=== PATIENT | male | born 1995 ===

== ENCOUNTER 2021-08-28 23:48 | Inpatient (IN) | payer OTHER ==
[~2021-08-28] VITALS: Ht 175.3 cm; Wt 78.7 kg
[2021-08-29] MEDS ORDERED: B-1100 M1 PO (01:46)
[2021-08-29] MEDS ORDERED: GABA300 PO (01:46)
[2021-08-29] MEDS ORDERED: FOLIC ACID0.4 MG (01:47)
[2021-08-29] MEDS ORDERED: MELATONIN5 M1 PO (01:47)
[2021-08-29] MEDS ORDERED: CHLO25 PO (01:48)
[2021-08-29] MEDS ORDERED: HYDPAM50 PO (01:49)
[2021-08-29] MEDS ORDERED: CATAPRES0.1 MG PO (01:52)
[2021-08-29] MEDS ORDERED: METO25 PO (01:53)
[2021-08-29] MEDS ORDERED: PROM25 PO (01:53)
[2021-08-29] MEDS ORDERED: TRAZ50 PO (01:54)
[2021-08-29 02:41] LABS: Alanine Aminotransfer (ALT/SGP 166 U/L (12-78); Albumin, Blood 3.8 g/dL (3.4-5.0); Albumin/Globulin Ratio 1.3 (0.8-1.8); Alk Phos 206 U/L (50-136); Anion Gap 7 mmol/L (6-16); Aspartate Aminotrans (AST/SGOT 125 U/L (12-37); Bilirubin, Total 2.5 mg/dL (0.1-1.0); Blood Urea Nitrogen 9 mg/dL (8-24); Bun/Creatinine Ratio 12.2 (12.0-20.0); CO2, Blood 29 mmol/L (21-32); Chloride, Blood 102 mmol/L (98-108); Creatinine, Blood 0.74 mg/dL (0.60-1.20); Glomerular Filtration Rate >60 (60-); Glucose, Blood 116 mg/dL (70-99); Potassium, Blood 3.2 mmol/L (3.5-5.5); Sodium, Blood 138 mmol/L (136-145); Total Protein, Blood 6.8 g/dL (6.4-8.2)
[2021-08-29 02:53] LABS: BASOPHILS ABSOLUTE AUTO 0.03 K/mm3 (0.00-0.23); BASOPHILS PERCENT AUTO 0 % (0-2); EOSINOPHILS ABSOLUTE AUTO 0.03 K/mm3 (0.00-0.68); EOSINOPHILS PERCENT AUTO 0 % (0-6); Hematocrit 35.5 % (37.0-53.0); Hemoglobin 12.1 g/dL (13.5-17.5); IMMATURE GRAN ABSOLUTE AUTO 0.04 K/mm3 (0.00-0.10); IMMATURE GRAN PERCENT AUTO 1 % (0-1); LYMPHOCYTES ABSOLUTE AUTO 2.51 K/mm3 (0.84-5.20); LYMPHOCYTES PERCENT AUTO 37 % (21-46); MONOCYTES ABSOLUTE AUTO 0.48 K/mm3 (0.16-1.47); MONOCYTES PERCENT AUTO 7 % (4-13); Mean Corpuscular HGB 31.8 pg (26.0-34.0); Mean Corpuscular HGB Conc 34.1 g/dL (31.5-36.5); Mean Corpuscular Volume 93 fL (80-100); Mean Platelet Volume 11.6 fL (9.1-12.4); NEUTROPHILS ABSOLUTE AUTO 3.62 K/mm3 (1.96-9.15); NEUTROPHILS PERCENT AUTO 54 % (41-73); Platelet Count 71 K/mm3 (150-400); RDW Coefficient Variation 16.1 % (11.7-14.2); RDW Standard Deviation 55.5 fL (35.1-46.3); White Blood Cell Count 6.71 K/mm3 (4.00-11.30)
--- NOTE | 2021-08-29 05:30 | NUR ---
Arrived from ER, admission assessment complete. Unable to answer any questions due to being too drowsy. follows commands, when speaking- speech very garbled and difficult to understand
[2021-08-29 05:32] LABS: International Normalized Ratio 1.24; Prothrombin Time Results 12.8 Sec (9.7-11.5)
--- NOTE | 2021-08-29 07:50 | NUR ---
TOOK OVER CARE OF PT AT 0700, PT RESTING ON RA.
--- NOTE | 2021-08-29 11:59 | NUR ---
PT WAS GETTING OUT OF BED, SEEMINGLY NO RESPONSE FROM IV ATIVAN PUSHES, SECURITY AND DR. TAVARES TO BEDSIDE. ORDERS PLACED
--- NOTE | 2021-08-29 18:22 | NUR ---
SUMMARY NEURO; PT A/OX3 BUT THEN WILL LOSE TRACK OF CONVERSATION DUE TO VISUAL AND AUDITORY HALLUCINATIONS. FOLOOWS COMMANDS, EQUAL STRENGTH THROUGHOUT. CARDIAC; NSR/SB LUNGS: CLEAR ON RA SKIN; WNL- NO SWEATS GI: NPO/ HYPOACTIVE : WNL
[2021-08-30 04:05] LABS: BASOPHILS ABSOLUTE AUTO 0.03 K/mm3 (0.00-0.23); BASOPHILS PERCENT AUTO 0 % (0-2); EOSINOPHILS ABSOLUTE AUTO 0.08 K/mm3 (0.00-0.68); EOSINOPHILS PERCENT AUTO 1 % (0-6); Hematocrit 32.9 % (37.0-53.0); IMMATURE GRAN ABSOLUTE AUTO 0.04 K/mm3 (0.00-0.10); IMMATURE GRAN PERCENT AUTO 1 % (0-1); LYMPHOCYTES ABSOLUTE AUTO 1.86 K/mm3 (0.84-5.20); LYMPHOCYTES PERCENT AUTO 26 % (21-46); MONOCYTES ABSOLUTE AUTO 0.44 K/mm3 (0.16-1.47); MONOCYTES PERCENT AUTO 6 % (4-13); Mean Corpuscular HGB 32.5 pg (26.0-34.0); Mean Corpuscular HGB Conc 33.4 g/dL (31.5-36.5); Mean Corpuscular Volume 97 fL (80-100); Mean Platelet Volume 10.4 fL (9.1-12.4); NEUTROPHILS ABSOLUTE AUTO 4.74 K/mm3 (1.96-9.15); NEUTROPHILS PERCENT AUTO 66 % (41-73); Platelet Count 73 K/mm3 (150-400); RDW Coefficient Variation 16.3 % (11.7-14.2); RDW Standard Deviation 58.2 fL (35.1-46.3); Red Blood Cell Count 3.38 M/mm3 (4.30-5.90); White Blood Cell Count 7.19 K/mm3 (4.00-11.30)
[2021-08-30 04:25] LABS: Alanine Aminotransfer (ALT/SGP 107 U/L (12-78); Albumin, Blood 2.9 g/dL (3.4-5.0); Albumin/Globulin Ratio 1.1 (0.8-1.8); Alk Phos 136 U/L (50-136); Anion Gap 5 mmol/L (6-16); Aspartate Aminotrans (AST/SGOT 70 U/L (12-37); Blood Urea Nitrogen 6 mg/dL (8-24); Bun/Creatinine Ratio 9.1 (12.0-20.0); CO2, Blood 27 mmol/L (21-32); Calcium, Blood 8.3 mg/dL (8.5-10.1); Chloride, Blood 109 mmol/L (98-108); Creatinine, Blood 0.66 mg/dL (0.60-1.20); Globulin, Blood 2.7 g/dL (2.2-4.0); Glomerular Filtration Rate >60 (60-); Glucose, Blood 103 mg/dL (70-99); Potassium, Blood 3.1 mmol/L (3.5-5.5); Sodium, Blood 141 mmol/L (136-145); Total Protein, Blood 5.6 g/dL (6.4-8.2)
[2021-08-30 04:49] LABS: U Amphetamine Screen Not Detected; U Barbituate Screen DETECTED; U Benzodiazapine Screen DETECTED; U Buprenorphine Screen Not Detected; U Cannabinoids Screen Not Detected; U Cocaine Screen Not Detected; U Methadone Screen Not Detected; U Methamphetamine Screen Not Detected; U Opiates Screen DETECTED; U Oxycodone Screen Not Detected; U Phencyclidine Screen Not Detected; U Propoxyphene Screen Not Detected
--- NOTE | 2021-08-30 06:45 | NUR ---
increased hallucinations this am. Medicated as needed. Patient request nurse to call mother and update her. Called at this time. Updates given to mom and then transferred call to room to talk to patient.
--- NOTE | 2021-08-30 09:00 | NUR ---
INITIAL ASSESSMENT PATIENT ANSWERED ALL ORIENTATION QUESTIONS CORRECTLY THIS AM, HOWEVER PATIENT HAS INTERMITTENT CONFUSION AND WITH IT WILL PULL OFF/ AT LINES AND CORDS AND ATTEMPT TO GET OUT OF BED. WHEN PATIENT ASKED WEAR HE THINKS HE IS HE IS UNSURE BUT THEN IS EASILY REORIENTED AND REDIRECTED. PATIENT CALM AND COOPERATIVE. PATIENT HAS CIWA SCORE OF 2. PATIENT UNSTEADY AND OFF BALANCE ON FEET. PATIENT AFEBRILE. PATIENT SATTING 90% AND GREATER ON RA. PATIENT IN SR, HR 60S TO 80S. SBP LOW 100S TO 1-TEENS. ABDOMINAL SOUNDS HYPOACTIVE. DENIES NAUSEA. ON REGULAR DIET. PATIENT USES URINAL INDEPENDENTLY. IV FLUSHED AND SALINE LOCKED. YASMIN AND BED ALARM ON FOR SAFETY. SKIN APPEARS WNL. BED LOW, CALL LIGHT IN REACH. WILL CONTINUE TO MONITOR FREQUENTLY THROUGHOUT SHIFT.
--- NOTE | 2021-08-30 13:30 | NUR ---
PATIENT HAS NO COMPLAINTS. VSS. CIWA SCORE OF 1. NO OTHER ACUTE CHANGES TO NOTE ON AT THIS TIME.
[2021-08-30] MEDS ORDERED: LORA2 PO (15:50)
[2021-08-30] MEDS ORDERED: Norco 5-325 Ta1 EACH PO (15:51)
--- NOTE | 2021-08-30 16:52 | NUR ---
PATIENT AFEBRILE. NO COMPLAINTS OF PAIN. PATIENT ANSWERING ALL ORIENTATION QUESTIONS CORRECTLY. PATIENT HAS HAD LESS EPISODES OF CONFUSION BUT IS STILL FORGETFUL AT TIMES. PATIENT HAS BEEN LESS IMPULSIVE AND HAS NOT BEEN PULLING AT LINES AND CORDS. PATIENT DOES STATE THAT HE FEELS MORE ANXIOUS. CIWA SCORE OF 4. PATIENT GIVEN PRN LIBRIUM. HR 80S TO 90S. SBP 120S TO 130S. NO OTHER ACUTE CHANGES TO NOTE ON AT THIS TIME.
--- NOTE | 2021-08-30 18:31 | NUR ---
SHIFT SUMMARY PATIENT REMAINED ABLE TO ANSWER ALL ORIENTATION QUESTIONS CORRECTLY. PATIENT IMPULSIVE WITH INTERMITTENT PERIODS OF CONFUSION AND PULLING AT LINES AND CORDS THIS AM. PATIENT HAS BEEN LESS IMPULSIVE AND HAD ONLY BRIEF PERIODS OF FORGETFULNESS LATER THIS AFTERNOON. PATIENT DID SAY THIS AFTERNOON THAT HE WAS FEELING MORE ANXIOUS. CIWA SCORE RANGED FROM 1 TO 4. PATIENT 1 PA TO TOILET STILL IS A LITTLE UNSTEADY. PATIENT REMAINED SATTING 90% AND GREATER ON RA. PATIENT REMAINED IN SR, HR 60S TO 90S. SBP LOW 100S TO 130S. NO COMPLAINTS OF NAUSEA THIS SHIFT. PATIENT TOLERATED REGULAR DIET ALL DAY. PATIENT HAD 2 BMS THIS SHIFT. OUTPUT WNL. IV SALINE LOCKED. PATIENT RECEIVED 40 MEQ KCL REPLACEMENT FOR POTASSIUM OF 3.1 THIS AM. PATIENT REFUSED BEDBATH THIS SHIFT. PATIENT APPEARS COMFORTABLE AND CONTENT AT THIS TIME. BED LOW, CALL LIGHT IN REACH, BED ALARM ON. REPORT WILL BE GIVEN TO ONCOMING [employer]IST NURSE SHORTLY.
--- NOTE | 2021-08-30 19:30 | NUR ---
PT REPORT RECEIVED SAFETY CHECK COMPLETED, ASSUMED PT CARE. PT IS LYING SUPINE IN BED AND IS RESTING, WITH CALL LIGHT IN REACH AND BED ALARM ON.
[2021-08-31 04:13] LABS: Alanine Aminotransfer (ALT/SGP 87 U/L (12-78); Albumin, Blood 2.8 g/dL (3.4-5.0); Albumin/Globulin Ratio 1.1 (0.8-1.8); Alk Phos 132 U/L (50-136); Anion Gap 6 mmol/L (6-16); Aspartate Aminotrans (AST/SGOT 55 U/L (12-37); Bilirubin, Total 1.5 mg/dL (0.1-1.0); Blood Urea Nitrogen 5 mg/dL (8-24); Bun/Creatinine Ratio 6.8 (12.0-20.0); CO2, Blood 26 mmol/L (21-32); Calcium, Blood 8.3 mg/dL (8.5-10.1); Chloride, Blood 109 mmol/L (98-108); Creatinine, Blood 0.73 mg/dL (0.60-1.20); Globulin, Blood 2.6 g/dL (2.2-4.0); Glomerular Filtration Rate >60 (60-); Glucose, Blood 103 mg/dL (70-99); Potassium, Blood 3.3 mmol/L (3.5-5.5); Sodium, Blood 141 mmol/L (136-145); Total Protein, Blood 5.4 g/dL (6.4-8.2)
--- NOTE | 2021-08-31 06:34 | NUR ---
SHIFT SUMMERY: PT HAS BEEN ALERT AND ORIENTED X4 THROUGHOUT THE NIGHT AND HAS SLEPT INTERMITTANTLY. PT HAS HAS STATED ANXIETY AT TIMES THROUGHOUT THE NIGHT WHICH WAS RELEIVED WITH 2 MG OF IV ATIVAN. PT HAS ALSO STATED CHRONIC BACK PAIN, FOR WHICH HE HAS RECIEVED NORCO. PT IS ABLE TO AMBULATE WITH ASSISTANCE WITH THE EKG LINES AND HAS STEADY GAIT. PT STATES HE WANTS TO BE DISCHARGED. VSS OVER NIGHT.
[2021-08-31] MEDS ORDERED: BUSP5 PO (10:03)
--- NOTE | 2021-08-31 16:41 | NUR ---
SHIFT SUMMARY: PT ALERT AND ORIENTED X4. NO AUDITORY OR VISUAL HALLUCINATIONS REPORTED. VSS. PT SATING ABOVE 95% ON RA. PT WAS MECIATED PERIDOCIALLY THROUGHOUT THE DAY FOR ANXIETY AND CHRONIC BACK PAIN. PT AMBULATES TO AND FROM BATHROOM WITH ONE ASSIST. PLAN FOR PT IS TO BE DISCHARGE TONIGHT. CUREENTLY WAITING RIDE FROM FRIEND. WILL CONTINUE TO MONITOR AND REPORT TO ONCOMING RN.
--- NOTE | 2021-08-31 18:36 | NUR ---
DISCHARGE PT DISCHARGED AT 1830. PT ACKNOWLEDGES D/C INSTRUCTIONS. ALL PT BELONGINGS AND MEDICATIONS SENT HOME WITH PT. PT WALKED OUT OF UNIT.
== END 2021-08-31 18:30 | disposition home or self-care (01) | DRG 897 ==
LOC: ER 23:48 → ICUW 08-29 04:05 → ICUE 08-30 08:30
PROVIDERS: Internal Medicine; Student in an Organized Health Care Education/Training Program; ADMIT Internal Medicine
DX: F10.239 Alcohol dependence with withdrawal, unspecified (principal); F10.251 Alcohol dependence with alcohol-induced psychotic disorder with hallucinations; F41.9 Anxiety disorder, unspecified; Z78.1 Physical restraint status; I10 Essential (primary) hypertension; G62.9 Polyneuropathy, unspecified; Z79.899 Other long term (current) drug therapy; E87.6 Hypokalemia
CPT/HCPCS: 36415; 80053; 83690; 85025; 85610; 96374; 96376; 99285; A9270; G0480; J1650; J2060; J2560; J3411; J3475; J3480; J7030; J7042